=== PATIENT | female | born 1950 ===

== ENCOUNTER → 2018-05-28 | Outpatient (CLI) | payer OTHER ==
[~2018-05-28] MED LIST: LOSARTAN POTASS25 MG PO
== END | disposition home or self-care (01) ==
LOC: MRI 10:55
DX: Z12.31 Encounter for screening mammogram for malignant neoplasm of breast (principal); Z87.898 Personal history of other specified conditions; I11.9 Hypertensive heart disease without heart failure; I70.0 Atherosclerosis of aorta; R42 Dizziness and giddiness; H93.3X9 Disorders of unspecified acoustic nerve; R41.3 Other amnesia
CPT/HCPCS: 70553; 71046; 77067; A9579

== ENCOUNTER 2022-08-11 11:54 | Inpatient (IN) | payer OTHER ==
[~2022-08-11] VITALS: Ht 162.6 cm; Wt 99.8 kg
--- NOTE | 2022-08-11 12:06 | NUR ---
SE RECIBE PTE LETARGICA Y ORIENTADA X1. PARAMEDICO REFIERE QUE LA ENCONTRARON EN EL PISO Y LETARGICA. SE MANOJ S/V Y SE UBICA.
--- NOTE | 2022-08-11 13:12 | NUR ---
SE REALIZAN HUGO MUESTRAS DE LAB SEGUNORDEN MEDICA Y BAJO MEDIDAS ASEPTICAS. PTE PENDIENTE A RESULTADOS. Y ENTREGA DE U/A
[2022-08-14] MEDS ORDERED: LISINOPRIL2.5 MG (10:06)
[2022-08-14] MEDS ORDERED: PRAVASTATIN SOD20 MG (10:06)
[2022-08-14] MEDS ORDERED: DONEPEZIL HCL10 MG (10:06)
[2022-08-14] MEDS ORDERED: ZALEPLON5 MG (10:06)
== END 2022-08-15 19:21 | disposition home or self-care (01) | DRG 178 ==
LOC: ER 11:54 → MEDJ 19:40 → SEC-K 22:47 → MEDJ 08-12 08:57
PROVIDERS: ADMIT Internal Medicine; ATTEND Internal Medicine
PROC: BW28ZZZ Computerized Tomography (CT Scan) of Head (ICD-10-PCS; 2022-08-11)
PROC: BW24YZZ Computerized Tomography (CT Scan) of Chest and Abdomen using Other Contrast (ICD-10-PCS; 2022-08-11)
PROC: B345ZZZ Ultrasonography of Bilateral Common Carotid Arteries (ICD-10-PCS; 2022-08-12)
PROC: 4A12X4Z Monitoring of Cardiac Electrical Activity, External Approach (ICD-10-PCS; principal; 2022-08-13)
DX: U07.1 COVID-19 (principal); M62.82 Rhabdomyolysis; G20 Parkinson's disease; I10 Essential (primary) hypertension; F03.90 Unspecified dementia, unspecified severity, without behavioral disturbance, psychotic disturbance, mood disturbance, and anxiety; F17.200 Nicotine dependence, unspecified, uncomplicated; W13.3XXA Fall through floor, initial encounter; Y93.89 Activity, other specified; Y92.031 Bathroom in apartment as the place of occurrence of the external cause

== ENCOUNTER 2024-05-02 09:46 | Outpatient (CLI) | payer OTHER ==
[~2024-05-02 09:46] MED LIST changes: +DONEPEZIL HCL10 MG; +LISINOPRIL2.5 MG; +PRAVASTATIN SOD20 MG; +ZALEPLON5 MG
== END 2024-05-02 10:43 | disposition home or self-care (01) ==
LOC: MRI 09:46 → TOM 09:46
PROVIDERS: ATTEND General Practice
DX: J45.991 Cough variant asthma (principal); M25.511 Pain in right shoulder; G81.03 Flaccid hemiplegia affecting right nondominant side; G81.00 Flaccid hemiplegia affecting unspecified side; G31.84 Mild cognitive impairment of uncertain or unknown etiology
CPT/HCPCS: 70553; 71046; 73030; Q9965

== ENCOUNTER 2024-12-31 09:50 | Outpatient (CLI) | payer OTHER | END 2024-12-31 09:59 | disposition home or self-care (01) | LOC: MRI 09:50 | PROVIDERS: ATTEND Neuromusculoskeletal Medicine & OMM | DX: F09 Unspecified mental disorder due to known physiological condition (principal); F03.90 Unspecified dementia, unspecified severity, without behavioral disturbance, psychotic disturbance, mood disturbance, and anxiety; I69.959 Hemiplegia and hemiparesis following unspecified cerebrovascular disease affecting unspecified side; R41.841 Cognitive communication deficit | CPT/HCPCS: 70544; 70551 ==